=== PATIENT | male | born 1990 | race Caucasian/White ===

== ENCOUNTER 2023-05-23 09:49 | Outpatient (CLI) | payer OTHER ==
--- NOTE | 2023-05-23 13:51 | XRAY Report ---
PROCEDURE: Hips 2V BILAT INDICATIONS: PAIN IN RIGHT HIP TECHNIQUE: An AP view of the pelvis and bilateral frog-leg lateral views of the hips were acquired. COMPARISON: None. FINDINGS: Bones: No fractures or dislocations. No suspicious bony lesions. Mild bilateral hip degenerative change. Soft tissues: No suspicious soft tissue calcifications or masses. IMPRESSION: Mild bilateral hip degenerative change. Reviewed by: Иван Shabazz MD on 05/23/2023 1:50 PM PDT Approved by: Иван Shabazz MD on 05/23/2023 1:50 PM PDT Station ID: [id number]
== END 2023-05-23 09:50 | disposition home or self-care (01) ==
LOC: DI 09:49
PROVIDERS: ATTEND Specialist
DX: M16.0 Bilateral primary osteoarthritis of hip (principal)